=== PATIENT | male | born 1990 | race Caucasian/White ===

== ENCOUNTER 2019-05-22 19:51 | Emergency (ER) | payer OTHER ==
[2019-05-22 19:56] VITALS: BP 127/77; PULSE 84; TEMP 99.6; BMI 25.1
[2019-05-22] MEDS ORDERED: IBUPROFEN 600 MG TABLET (FP) PO ONE ×2 (19:59→20:02)
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
== END 2019-05-22 21:04 | disposition home or self-care (01) ==
LOC: FER 19:51
DX: M25.511 Pain in right shoulder (principal); V18.0XXA Pedal cycle driver injured in noncollision transport accident in nontraffic accident, initial encounter; Y93.55 Activity, bike riding; Y92.89 Other specified places as the place of occurrence of the external cause
CPT/HCPCS: 73030-TC-RT-FY; 99282-25